=== PATIENT | female | born 1940 | race Caucasian/White ===

== ENCOUNTER 2019-02-13 23:32 | Emergency (ER) | payer MEDICARE, BC ==
[~2019-02-13] VITALS: Ht 142.2 cm; Wt 62.3 kg
[2019-02-14] MEDS ORDERED: SIMV20TA2 PO (00:04)
[2019-02-14] MEDS ORDERED: MAGN400T PO (00:04)
[2019-02-14] MEDS ORDERED: FERR325T81 PO (00:04)
[2019-02-14] MEDS ORDERED: BASA100I SC (00:04)
[2019-02-14] MEDS ORDERED: ASPI81TA21 PO (00:04)
[2019-02-14] MEDS ORDERED: PANT40TA3 PO (00:04)
[2019-02-14] MEDS ORDERED: RAMI1CAP24 PO (00:04)
[2019-02-14] MEDS ORDERED: METF-839 PO (00:04)
[2019-02-14 00:26] LABS: BASO # 0.1 10^3/uL (0.0-0.2); BASO % 0.8 % (0.0-1.0); EOS # 0.1 10^3/uL (0.0-0.50); EOS % 1.6 % (0.0-3.0); HEMATOCRIT 35.9 % (36.0-47.0); LYMPH # 2.7 10^3/uL (1.5-4.5); LYMPH % 34.5 % (24.0-44.0); MEAN CORPUSCULAR HEMOGLOBIN 31.7 pg (27.0-33.0); MEAN CORPUSCULAR HGB CONC 33.4 g/dl (32.0-36.5); MEAN CORPUSCULAR VOLUME 94.7 fl (80.0-96.0); MONO # 0.6 10^3/uL (0.0-0.8); MONO % 7.8 % (0.0-5.0); NEUTROPHILS # 4.3 10^3/uL (1.8-7.7); NEUTROPHILS % 54.9 % (36.0-66.0); PLATELET COUNT, AUTOMATED 223 10^3/uL (150-450); RED BLOOD COUNT 3.79 10^6/uL (4.00-5.40); WHITE BLOOD COUNT 7.7 10^3/uL (4.0-10.0)
[2019-02-14 00:46] LABS: ALBUMIN 3.8 GM/DL (3.2-5.2); BILIRUBIN,TOTAL 0.2 MG/DL (0.2-1.0); CALCIUM LEVEL 9.6 MG/DL (8.8-10.2); CK-MB VALUE MASS 2.7 NG/ML (<3.6); CREATININE FOR GFR 1.44 MG/DL (0.55-1.30); GLOMERULAR FILTRATION RATE 37.2 (>32); MB/CK RELATIVE INDEX 3.29 (< OR =4); POTASSIUM SERUM 4.4 MEQ/L (3.5-5.1); TOTAL PROTEIN 7.6 GM/DL (6.4-8.2); TROPONIN I 0.03 NG/ML (< 0.10)
--- NOTE | 2019-02-14 01:31 | REPVR ---
EXAM: CT Head Without Contrast EXAM DATE/TIME: 02/14/2019 12:58 AM CLINICAL HISTORY: 79 years old, female; Injury or trauma; Fall; Initial encounter; Concussion / head injury; Consciousness not specified; Additional info: Tr TECHNIQUE: Imaging protocol: Computed tomography of the head without contrast. Radiation optimization: All CT scans at this facility use at least one of these dose optimization techniques: automated exposure control; mA and/or kV adjustment per patient size (includes targeted exams where dose is matched to clinical indication); or iterative reconstruction. COMPARISON: No relevant prior studies available. FINDINGS: Brain: No acute intracranial hemorrhage or mass effect. No discrete geographic area of hypoattenuation to suggest territorial infarct identified at this time. Ventricles: No ventriculomegaly. Bones/joints: No acute fracture. Sinuses: No fluid levels. Mastoid air cells: No mastoid effusion. IMPRESSION: No acute intracranial abnormality. Electronically signed by: Александр Segura On 02/14/2019 01:31:13 AM
[2019-02-14 03:00] VITALS: BP 133/64
--- NOTE | 2019-02-14 08:06 | REP ---
Portable right elbow two views: There are no comparisons. There are small calcifications adjacent to the medial humeral epicondyle. This could be degenerative or a avulsions. No other evidence of fracture is identified. There is a calcification at the n, likely degenerative ligamentous calcification. There is no evidence of hemarthrosis. An intravenous cannula is identified in the antecubital fossa. Joint spaces are unremarkable. There is no dislocation. Impression: Calcifications as described. No hemarthrosis. IV cannula. Electronically Signed by Thomas Alcazar MD 02/14/2019 07:58 A
--- NOTE | 2019-02-14 08:08 | REP ---
Elbow for views: Studies correlate with the portable right elbow study earlier this same date. There are calcifications adjacent to the distal humeral medial epicondyle as previously. These could be degenerative or a avulsions. The there is a calcification adjacent to the olecranon which may also be degenerative versus a avulsion. There is no evidence of hemarthrosis. Mineralization and joint spaces are normal. There is an IV cannula in the antecubital fossa as previously. On the lateral view there are tiny densities anterior to the proximal radius shaft, a small foreign bodies versus calcifications. Impression: Calcifications as described. No hemarthrosis. No dislocation. Electronically Signed by Thomas Alcazar MD 02/14/2019 08:00 A
--- NOTE | 2019-02-14 08:25 | ECGEPIP ---
[facility] - ED Test Date: 2019-02-14 Pat Name: PETR CELESTE Department: Room: - Gender: Female Pattern Hand: KCJ : 1940 Requested By: CHRISTINA ADAMSON Order Number: [id number] Reading MD: Javier Henriquez Measurements Intervals Michie Rate: 83 P: 66 AL: 165 QRS: 6 QRSD: 101 T: 123 QT: 377 QTc: 444 Interpretive Statements SINUS RHYTHM POSSIBLE PRIOR INFERIOR INFARCT POOR R WAVE PROGRESSION ST DEVIATION AND MODERATE T-WAVE ABNORMALITY, CONSIDER LATERAL ISCHEMIA NO PRIORS FOR COMPARISON Electronically Signed on 02-14-2019 8:24:28 EDT by Javier Henriquez
== END 2019-02-14 03:10 | disposition home or self-care (01) ==
LOC: M ED 23:32
DX: S50.01XA Contusion of right elbow, initial encounter (principal); W19.XXXA Unspecified fall, initial encounter; Y92.091 Bathroom in other non-institutional residence as the place of occurrence of the external cause; Y93.E1 Activity, personal bathing and showering; I10 Essential (primary) hypertension; E11.9 Type 2 diabetes mellitus without complications; K21.9 Gastro-esophageal reflux disease without esophagitis; E78.5 Hyperlipidemia, unspecified; Z88.0 Allergy status to penicillin; Z79.899 Other long term (current) drug therapy; Z79.4 Long term (current) use of insulin; Z79.82 Long term (current) use of aspirin